=== PATIENT | female | born 1970 | race Two or more races ===

== ENCOUNTER 2017-01-23 15:24 | Observation (INO) | payer OTHER ==
[~2017-01-23] VITALS: Ht 152.4 cm; Wt 105.1 kg
[~2017-01-23 15:24] MED LIST: ATIVAN1 MG PO; BENTYL20 MG PO; CELEXA20 MG PO; CIPRO500 MG PO; DESYREL100 MG PO; FLAGYL500 MG PO; LIALDA1.2 GM PO; MACROBID100 MG PO; PERCOCET 5/31 TABLET PO; PROMETHAZINE HC25 M1 PO; VICODIN 5-3001 EACH PO; ZOFRAN8 MG PO
[2017-01-23 16:07] LABS: HEMATOCRIT 38.4 % (36.0-46.0); MCH 29.8 PG (29.0-34.0); MCHC 32.6 G/DL (30.0-36.0); MCV 91.6 FL (83-99); MEAN PLAT.VOLUME 10.9 uM^3 (9.5-12.4); PLATELET COUNT 228 K/uL (156-360); RBC DIS.WIDTH-CV 14.6 % (11.8-14.6); RBC DIS.WIDTH-SD 48.9 % (39-53); RED BLOOD COUNT 4.19 M/uL (3.80-5.20); WHITE BLOOD COUNT 8.5 K/uL (4.1-10.2)
[2017-01-23 16:08] LABS: ADD MIUA? YES; BILIRUBIN NEGATIVE; BLOOD NEGATIVE; COLOR STRAW ((YELLOW)); GLUCOSE (STRIP) NEGATIVE; KETONES NEGATIVE; LEUKOCYTES SMALL; NITRITE NEGATIVE; PROTEIN (STRIP) NEGATIVE; SPECIFIC GRAVITY 1.008 (1.000-1.030); UROBILINOGEN 0.2 MG/DL (0.2-1.0)
[2017-01-23 16:12] LABS: BACTERIA NONE SEEN /HPF; EPITHELIAL CELLS 1+ /HPF; MUCUS NONE SEEN /LPF; RED BLOOD CELLS 0-5 /HPF (0-5); UCUL ADDED? NO; WHITE BLOOD CELLS 0-5 /HPF (0-5)
[2017-01-23 16:15] LABS: CHLORIDE 102 mEq/L (99-109); POTASSIUM 4.6 mEq/L (3.7-5.4); SODIUM 138 mEq/L (136-147)
[2017-01-23 16:17] LABS: GLUCOSE 126 mg/dL (70-99)
[2017-01-23 16:19] LABS: ANION GAP 13 MEQ/L (2-14); TOTAL BILIRUBIN 0.3 mg/dL (0.0-1.0)
[2017-01-23 16:21] LABS: ALKALINE PHOSPHATASE 110 IU/L (3-129); GFR ESTIMATE (CALCULATED) 57 mL/min/
[2017-01-23 16:22] LABS: UREA NITROGEN (BUN) 17 mg/dL (9-23)
[2017-01-23 18:50] LABS: LIPASE 21 U/L (1.0-51.0)
[2017-01-23] MEDS ORDERED: ZOFRAN4 MG PO (23:07)
[2017-01-23] MEDS ORDERED: WELLBUTRIN SR150 MG PO (23:09)
[2017-01-23] MEDS ORDERED: PENTASA250 MG PO (23:14)
[2017-01-23] MEDS ORDERED: BALSALAZIDE DI750 MG PO (23:16)
[2017-01-23] MEDS ORDERED: OXYCODONE-APAP1 EACH PO (23:18)
[2017-01-24 03:10] LABS: D-DIMER ELISA < 150.00 ng/mLDDU (<230)
[2017-01-24 03:44] VITALS: BP 137/82
[2017-01-24 08:42] VITALS: BP 149/77
[2017-01-24 12:27] VITALS: BP 147/68
[2017-01-24 16:00] VITALS: BP 129/66
== END 2017-01-24 16:25 | disposition home or self-care (01) ==
LOC: EME 15:24 → EDOF 01-24 01:44 → 5WEST 01-24 01:44 → EDOF 01-24 01:44 → ENRESERV 01-24 01:46 → 5WEST 01-24 03:41
PROVIDERS: Hospitalist
DX: R10.11 Right upper quadrant pain (principal); R11.10 Vomiting, unspecified; K50.90 Crohn's disease, unspecified, without complications; R00.0 Tachycardia, unspecified; I95.9 Hypotension, unspecified; R09.02 Hypoxemia; I10 Essential (primary) hypertension; M19.90 Unspecified osteoarthritis, unspecified site; F31.9 Bipolar disorder, unspecified; Z91.040 Latex allergy status; Z88.6 Allergy status to analgesic agent; Z88.0 Allergy status to penicillin
CPT/HCPCS: 71010; 74176; 80053; 81003; 83690; 85027; 85379; 94799; 99281; 99285; C1751; G0378; J2270; J2405; J2550; J3010; J7030

== ENCOUNTER 2017-02-13 14:21 | Emergency (ER) | payer OTHER ==
[~2017-02-13] VITALS: Ht 152.4 cm; Wt 106.7 kg
[~2017-02-13 14:21] MED LIST changes: +BALSALAZIDE DI750 MG PO; +OXYCODONE-APAP1 EACH PO; +PENTASA250 MG PO; +WELLBUTRIN SR150 MG PO; +ZOFRAN4 MG PO
[2017-02-13 15:12] LABS: HEMATOCRIT 36.5 % (36.0-46.0); MCH 30.3 PG (29.0-34.0); MCHC 32.3 G/DL (30.0-36.0); MCV 93.6 FL (83-99); MEAN PLAT.VOLUME 10.4 uM^3 (9.5-12.4); PLATELET COUNT 182 K/uL (156-360); RBC DIS.WIDTH-CV 15.4 % (11.8-14.6); RBC DIS.WIDTH-SD 52.9 % (39-53); WHITE BLOOD COUNT 5.9 K/uL (4.1-10.2)
[2017-02-13 15:19] LABS: CHLORIDE 100 mEq/L (99-109); POTASSIUM 3.8 mEq/L (3.7-5.4)
[2017-02-13 15:20] LABS: SODIUM 137 mEq/L (136-147)
[2017-02-13 15:22] LABS: GLUCOSE 106 mg/dL (70-99)
[2017-02-13 15:23] LABS: ANION GAP 12 MEQ/L (2-14)
[2017-02-13 15:24] LABS: TOTAL BILIRUBIN 0.3 mg/dL (0.0-1.0)
[2017-02-13 15:25] LABS: ALKALINE PHOSPHATASE 131 IU/L (3-129); GFR ESTIMATE (CALCULATED) 51 mL/min/
[2017-02-13 15:27] LABS: UREA NITROGEN (BUN) 18 mg/dL (9-23)
[2017-02-13 15:32] LABS: TROP-I INTERPRETATION NEGATIVE; TROPONIN-I < 0.01 ng/mL (0.0-0.30)
[2017-02-13 15:36] LABS: QUANTITATIVE HCG < 4.0 MIU/ML
[2017-02-13 17:00] LABS: ADD MIUA? YES; BILIRUBIN NEGATIVE; BLOOD NEGATIVE; COLOR STRAW ((YELLOW)); GLUCOSE (STRIP) NEGATIVE; KETONES NEGATIVE; LEUKOCYTES TRACE; NITRITE NEGATIVE; PROTEIN (STRIP) NEGATIVE; UROBILINOGEN 0.2 MG/DL (0.2-1.0)
[2017-02-13 17:05] LABS: BACTERIA NONE SEEN /HPF; EPITHELIAL CELLS RARE /HPF; MUCUS TRACE /LPF; RED BLOOD CELLS 0-5 /HPF (0-5); UCUL ADDED? NO; WHITE BLOOD CELLS 0-5 /HPF (0-5)
[2017-02-13 21:09] VITALS: BP 120/90
== END 2017-02-13 21:10 | disposition home or self-care (01) ==
LOC: EME 14:21
PROVIDERS: Emergency Medicine
DX: R10.9 Unspecified abdominal pain (principal); F41.9 Anxiety disorder, unspecified; R00.0 Tachycardia, unspecified; R11.10 Vomiting, unspecified
CPT/HCPCS: 71020; 74020; 74177; 80053; 81003; 84484; 84702; 85027; 93005; 99281; 99285; J2060; J2270; J2405; J7030

== ENCOUNTER 2017-04-11 14:38 | Emergency (ER) | payer OTHER ==
[~2017-04-11] VITALS: Ht 152.4 cm; Wt 106.5 kg
[2017-04-11 15:35] LABS: MCH 29.7 PG (29.0-34.0); MCHC 32.1 G/DL (30.0-36.0); MCV 92.5 FL (83-99); MEAN PLAT.VOLUME 11.2 uM^3 (9.5-12.4); PLATELET COUNT 195 K/uL (156-360); RBC DIS.WIDTH-SD 51.5 % (39-53); RED BLOOD COUNT 4.11 M/uL (3.80-5.20); WHITE BLOOD COUNT 5.9 K/uL (4.1-10.2)
[2017-04-11 15:44] LABS: CHLORIDE 101 mEq/L (99-109); POTASSIUM 3.8 mEq/L (3.7-5.4); SODIUM 139 mEq/L (136-147)
[2017-04-11 15:46] LABS: GLUCOSE 94 mg/dL (70-99)
[2017-04-11 15:47] LABS: ANION GAP 11 MEQ/L (2-14)
[2017-04-11 15:48] LABS: TOTAL BILIRUBIN 0.3 mg/dL (0.0-1.0)
[2017-04-11 15:49] LABS: ALKALINE PHOSPHATASE 106 IU/L (3-129)
[2017-04-11 15:50] LABS: GFR ESTIMATE (CALCULATED) > 59 mL/min/
[2017-04-11 15:51] LABS: UREA NITROGEN (BUN) 18 mg/dL (9-23)
[2017-04-11 16:00] LABS: QUANTITATIVE HCG < 4.0 MIU/ML
[2017-04-11] MEDS ORDERED: ZOFRAN4 MG PO ×2 (19:45→19:51)
[2017-04-11 20:10] VITALS: BP 151/96
== END 2017-04-11 20:10 | disposition home or self-care (01) ==
LOC: EME 14:38
DX: R11.2 Nausea with vomiting, unspecified (principal); R10.9 Unspecified abdominal pain; R19.7 Diarrhea, unspecified; R00.0 Tachycardia, unspecified
CPT/HCPCS: 80053; 81003; 84702; 85027; 99281; 99284; J2270; J2405; J2765; J7030

== ENCOUNTER 2017-04-21 09:44 | Emergency (ER) | payer OTHER ==
[~2017-04-21] VITALS: Ht 152.4 cm; Wt 104.5 kg
[2017-04-21 10:21] LABS: HEMATOCRIT 45.1 % (36.0-46.0); HEMOGLOBIN 14.9 G/DL (11.9-15.5); MCH 30.3 PG (29.0-34.0); MCV 91.7 FL (83-99); NRBC (%) 0.4 /100 WBC (0-0); PLATELET COUNT 219 K/uL (156-360); RBC DIS.WIDTH-SD 50.8 % (39-53); RED BLOOD COUNT 4.92 M/uL (3.80-5.20); WHITE BLOOD COUNT 7.6 K/uL (4.1-10.2)
[2017-04-21 10:23] LABS: ALBUMIN 4.5 g/dL (3.2-4.8)
[2017-04-21 10:24] LABS: CHLORIDE 101 mEq/L (99-109); POTASSIUM 3.9 mEq/L (3.7-5.4); SODIUM 135 mEq/L (136-147)
[2017-04-21 10:26] LABS: GLUCOSE 100 mg/dL (70-99); TOTAL PROTEIN 9.1 g/dL (6.4-8.3)
[2017-04-21 10:28] LABS: TOTAL BILIRUBIN 0.4 mg/dL (0.0-1.0)
[2017-04-21 10:29] LABS: ALKALINE PHOSPHATASE 106 IU/L (3-129)
[2017-04-21 10:30] LABS: CREATININE 1.4 mg/dL (0.6-1.3); GFR ESTIMATE (CALCULATED) 43 mL/min/
[2017-04-21 10:31] LABS: AST (GOT) 17 IU/L (2-34); UREA NITROGEN (BUN) 16 mg/dL (9-23)
[2017-04-21 10:33] LABS: ALT (GPT) 12 IU/L (3-49)
[2017-04-21 10:38] LABS: QUANTITATIVE HCG < 4.0 MIU/ML
[2017-04-21 12:10] LABS: LIPASE 26 U/L (1.0-51.0)
[2017-04-21 12:25] LABS: APPEARANCE SL.HAZY ((CLEAR)); BILIRUBIN NEGATIVE; BLOOD SMALL; COLOR YELLOW ((YELLOW)); GLUCOSE (STRIP) NEGATIVE; KETONES NEGATIVE; LEUKOCYTES TRACE; NITRITE NEGATIVE; PROTEIN (STRIP) 100; SPECIFIC GRAVITY 1.025 (1.000-1.030); UROBILINOGEN 0.2 MG/DL (0.2-1.0)
[2017-04-21 12:36] LABS: BACTERIA RARE /HPF; EPITHELIAL CELLS 2+ /HPF; MUCUS TRACE /LPF; UCUL ADDED? YES
[2017-04-21] MEDS ORDERED: ZOFRAN ODT4 MG PO (12:58)
[2017-04-21] MEDS ORDERED: BENTYL10 MG PO (12:58)
[2017-04-21] MEDS ORDERED: PREDNISONE20 MG PO (13:05)
[2017-04-21 13:32] VITALS: BP 150/98
== END 2017-04-21 13:40 | disposition home or self-care (01) ==
LOC: EME 09:44
DX: R10.84 Generalized abdominal pain (principal); R11.2 Nausea with vomiting, unspecified; R19.7 Diarrhea, unspecified
CPT/HCPCS: 74177; 80053; 81003; 83690; 84702; 85027; 87086; 99281; 99284; J2270; J2405; J3010; J7030

== ENCOUNTER 2017-06-12 07:46 | Emergency (ER) | payer OTHER ==
[~2017-06-12] VITALS: Ht 152.4 cm; Wt 104.2 kg
[~2017-06-12 07:46] MED LIST changes: +BENTYL10 MG PO; +PREDNISONE20 MG PO; +ZOFRAN ODT4 MG PO
[2017-06-12 08:36] LABS: HEMOGLOBIN 12.6 G/DL (11.9-15.5); MCHC 32.3 G/DL (30.0-36.0); MCV 95.8 FL (83-99); PLATELET COUNT 232 K/uL (156-360); RBC DIS.WIDTH-CV 16.4 % (11.8-14.6); RBC DIS.WIDTH-SD 58.2 % (39-53); RED BLOOD COUNT 4.07 M/uL (3.80-5.20); WHITE BLOOD COUNT 6.2 K/uL (4.1-10.2)
[2017-06-12 09:02] LABS: QUANTITATIVE HCG < 4.0 MIU/ML
[2017-06-12 09:16] LABS: ALBUMIN 4.3 G/DL (3.2-4.8); CHLORIDE 103 MEQ/L (99-109); POTASSIUM 4.1 MEQ/L (3.7-5.4); SODIUM 139 MEQ/L (136-147); TOTAL BILIRUBIN 0.3 MG/DL (0.0-1.0)
[2017-06-12 09:18] LABS: APPEARANCE CLOUDY ((CLEAR)); BILIRUBIN NEGATIVE; BLOOD MODERATE; COLOR AMBER ((YELLOW)); GLUCOSE (STRIP) NEGATIVE; KETONES NEGATIVE; LEUKOCYTES MODERATE; NITRITE NEGATIVE; PROTEIN (STRIP) NEGATIVE; SPECIFIC GRAVITY 1.021 (1.000-1.030); UROBILINOGEN 0.2 MG/DL (0.2-1.0)
[2017-06-12 09:22] LABS: ALKALINE PHOSPHATASE 81 IU/L (3-129); ALT (GPT) 11 IU/L (3-49); AST (GOT) 18 IU/L (2-34); CREATININE 1.2 MG/DL (0.6-1.3); GFR ESTIMATE (CALCULATED) 51 mL/min/; GLUCOSE 110 mg/dL (70-99); LIPASE 25 U/L (1.0-51.0); TOTAL PROTEIN 7.9 G/DL (6.4-8.3); UREA NITROGEN (BUN) 17 mg/dL (9-23)
[2017-06-12 09:40] LABS: RED BLOOD CELLS 0-5 /HPF (0-5); WHITE BLOOD CELLS 0-5 /HPF (0-5)
[2017-06-12 09:41] LABS: BACTERIA 3+ /HPF; EPITHELIAL CELLS 1+ /HPF; MUCUS NONE SEEN /LPF; UCUL ADDED? YES
[2017-06-12 09:42] LABS: CALCIUM OXALATE CRYSTALS 2+ /HPF
[2017-06-12] MEDS ORDERED: ZOFRAN ODT4 MG PO (11:50)
[2017-06-12] MEDS ORDERED: BENTYL10 MG PO (11:50)
[2017-06-12 12:23] VITALS: BP 146/80
== END 2017-06-12 12:24 | disposition home or self-care (01) ==
LOC: EME 07:46
DX: K50.90 Crohn's disease, unspecified, without complications (principal); J98.11 Atelectasis
CPT/HCPCS: 74177; 80053; 81003; 83690; 84702; 85027; 87077; 87086; 87186; 99281; 99285; J2270; J2405; J7030

== ENCOUNTER 2017-08-09 11:52 | Emergency (ER) | payer OTHER ==
[~2017-08-09] VITALS: Ht 152.4 cm; Wt 103.6 kg
[2017-08-09 12:44] LABS: HEMATOCRIT 37.4 % (36.0-46.0); HEMOGLOBIN 12.4 G/DL (11.9-15.5); MCH 31.6 PG (29.0-34.0); MCHC 33.2 G/DL (30.0-36.0); MCV 95.4 FL (83-99); PLATELET COUNT 197 K/uL (156-360); RBC DIS.WIDTH-CV 15.1 % (11.8-14.6); RBC DIS.WIDTH-SD 52.9 % (39-53); RED BLOOD COUNT 3.92 M/uL (3.80-5.20); WHITE BLOOD COUNT 4.9 K/uL (4.1-10.2)
[2017-08-09 13:01] LABS: CHLORIDE 102 mEq/L (99-109); POTASSIUM 4.2 mEq/L (3.7-5.4); SODIUM 142 mEq/L (136-147)
[2017-08-09 13:03] LABS: GLUCOSE 107 mg/dL (70-99)
[2017-08-09 13:07] LABS: CREATININE 1.1 mg/dL (0.6-1.3); GFR ESTIMATE (CALCULATED) 56 mL/min/
[2017-08-09 13:08] LABS: UREA NITROGEN (BUN) 8 mg/dL (9-23)
[2017-08-09 13:15] LABS: TROP-I INTERPRETATION NEGATIVE; TROPONIN-I < 0.01 ng/mL (0.0-0.30)
[2017-08-09 14:30] LABS: ALBUMIN 4.1 g/dL (3.2-4.8)
[2017-08-09 14:32] LABS: TOTAL PROTEIN 7.7 g/dL (6.4-8.3)
[2017-08-09 14:34] LABS: TOTAL BILIRUBIN 0.3 mg/dL (0.0-1.0)
[2017-08-09 14:35] LABS: ALKALINE PHOSPHATASE 82 IU/L (3-129)
[2017-08-09 14:38] LABS: ALT (GPT) 11 IU/L (3-49); AST (GOT) 22 IU/L (2-34); DIRECT BILIRUBIN 0.2 mg/dL (0.0-0.3)
[2017-08-09 14:39] LABS: LIPASE 17 U/L (1.0-51.0)
[2017-08-09] MEDS ORDERED: ZOFRAN ODT8 MG PO (15:31)
[2017-08-09] MEDS ORDERED: PREDNISONE5 M1 PO (15:31)
[2017-08-09] MEDS ORDERED: PERCOCET 5/31 TABLET PO (15:31)
[2017-08-09 15:42] VITALS: BP 175/115
== END 2017-08-09 15:43 | disposition home or self-care (01) ==
LOC: RME 11:52 → EME 11:52 → RME 15:43
DX: R10.84 Generalized abdominal pain (principal); K50.90 Crohn's disease, unspecified, without complications; I44.7 Left bundle-branch block, unspecified; I10 Essential (primary) hypertension; F41.9 Anxiety disorder, unspecified; F32.9 Major depressive disorder, single episode, unspecified; Z88.0 Allergy status to penicillin; Z91.040 Latex allergy status
CPT/HCPCS: 71046; 80048; 80076; 83690; 84484; 85027; 93005; 99281; 99284

== ENCOUNTER 2017-09-20 11:28 | Emergency (ER) | payer OTHER ==
[~2017-09-20] VITALS: Ht 152.4 cm; Wt 100.7 kg
[~2017-09-20 11:28] MED LIST changes: +PREDNISONE5 M1 PO; +ZOFRAN ODT8 MG PO
[2017-09-20 15:34] LABS: HEMOGLOBIN 12.9 G/DL (11.9-15.5); MCH 31.9 PG (29.0-34.0); MCHC 33.1 G/DL (30.0-36.0); MCV 96.5 FL (83-99); PLATELET COUNT 178 K/uL (156-360); RBC DIS.WIDTH-CV 14.1 % (11.8-14.6); RBC DIS.WIDTH-SD 50.3 % (39-53); RED BLOOD COUNT 4.04 M/uL (3.80-5.20); WHITE BLOOD COUNT 5.9 K/uL (4.1-10.2)
[2017-09-20 15:35] LABS: APPEARANCE SL.HAZY ((CLEAR)); BILIRUBIN NEGATIVE; BLOOD SMALL; COLOR YELLOW ((YELLOW)); GLUCOSE (STRIP) NEGATIVE; KETONES NEGATIVE; LEUKOCYTES MODERATE; NITRITE NEGATIVE; PROTEIN (STRIP) NEGATIVE; SPECIFIC GRAVITY 1.013 (1.000-1.030); UROBILINOGEN 0.2 MG/DL (0.2-1.0)
[2017-09-20 15:41] LABS: BACTERIA RARE /HPF; EPITHELIAL CELLS 1+ /HPF; MUCUS TRACE /LPF; RED BLOOD CELLS 0-5 /HPF (0-5); UCUL ADDED? NO; WHITE BLOOD CELLS 0-5 /HPF (0-5)
[2017-09-20 15:42] LABS: ALBUMIN 4.3 g/dL (3.2-4.8); CHLORIDE 100 mEq/L (99-109); POTASSIUM 3.8 mEq/L (3.7-5.4); SODIUM 139 mEq/L (136-147)
[2017-09-20 15:44] LABS: GLUCOSE 95 mg/dL (70-99)
[2017-09-20 15:45] LABS: TOTAL PROTEIN 8.2 g/dL (6.4-8.3)
[2017-09-20 15:46] LABS: TOTAL BILIRUBIN 0.3 mg/dL (0.0-1.0)
[2017-09-20 15:48] LABS: ALKALINE PHOSPHATASE 87 IU/L (3-129); GFR ESTIMATE (CALCULATED) > 59 mL/min/
[2017-09-20 15:49] LABS: UREA NITROGEN (BUN) 10 mg/dL (9-23)
[2017-09-20 15:50] LABS: AST (GOT) 18 IU/L (2-34)
[2017-09-20 15:51] LABS: ALT (GPT) 11 IU/L (3-49)
[2017-09-20 15:54] LABS: TROP-I INTERPRETATION NEGATIVE; TROPONIN-I < 0.01 ng/mL (0.0-0.30)
[2017-09-20 15:57] LABS: QUANTITATIVE HCG < 4.0 MIU/ML
[2017-09-20 16:08] VITALS: BP 0/0
== END 2017-09-20 16:00 | disposition left against medical advice (07) ==
LOC: EME 11:28
PROVIDERS: Physician Assistant Medical
DX: R10.32 Left lower quadrant pain (principal); R00.0 Tachycardia, unspecified; I10 Essential (primary) hypertension; K50.90 Crohn's disease, unspecified, without complications; M19.90 Unspecified osteoarthritis, unspecified site; L40.9 Psoriasis, unspecified; N95.9 Unspecified menopausal and perimenopausal disorder; F31.9 Bipolar disorder, unspecified; F41.9 Anxiety disorder, unspecified; F32.9 Major depressive disorder, single episode, unspecified; Z79.891 Long term (current) use of opiate analgesic; Z98.890 Other specified postprocedural states; Z88.0 Allergy status to penicillin; Z91.040 Latex allergy status; Z88.6 Allergy status to analgesic agent
CPT/HCPCS: 80053; 81003; 84484; 84702; 85027; 93005; 99281; 99285; J2405; J2765; J3010; J7030